=== PATIENT | male | born 1975 | race Caucasian/White ===

== ENCOUNTER 2016-11-26 04:51 | Emergency (ER) | payer SELFPAY ==
[~2016-11-26] VITALS: Ht 167.6 cm; Wt 75.5 kg
[2016-11-26 04:54] VITALS: Ht 167.6 cm; Wt 75.5 kg
[2016-11-26] MEDS ORDERED: IBUP-1542 PO (05:18)
[2016-11-26] MEDS ORDERED: AMO500 PO (05:18)
--- NOTE | 2016-11-26 05:23 | ERD ---
ER Documentation Chief Complaint Date/Time DATE: 11/26/16 TIME: 05:20 Chief Complaint sore throat x 3 days HPI 41-year-old male presents here in emergency department for complaint of sore throat, burning pain, 6/10 scale, is worse upon swallowing. Patient denies any fever or chills. Patient denies any cough or runny nose nasal congestion. Patient denies any other symptoms. Patient denies any sick contacts. Patient denies taking any medications to help with symptoms ROS All systems reviewed and are negative except as per history of present illness. Medications Home Meds Active Scripts Ibuprofen* (Motrin*) 600 Mg Tab, 600 MG PO Q6H Y for PAIN AND OR ELEVATED TEMP, #30 TAB Prov:DENEEN JUAN APPEALS ASSISTANT 11/26/16 Amoxicillin* (Amoxicillin*) 500 Mg Cap, 500 MG PO TID for 10 Days, CAP Prov:DENEEN JUAN APPEALS ASSISTANT 11/26/16 Allergies Allergies: Coded Allergies: No Known Allergy (Unverified , 11/26/16) PMhx/Soc Medical and Surgical Hx: pt denies Medical Hx, pt denies Surgical Hx History of Surgery: No Anesthesia Reaction: No Hx Neurological Disorder: No Hx Respiratory Disorders: No Hx Cardiac Disorders: No Hx Psychiatric Problems: No Hx Miscellaneous Medical Probl: No Hx Alcohol Use: No Hx Substance Use: No Hx Tobacco Use: No Smoking Status: Never smoker FmHx Family History: No coronary disease, No diabetes, No other Physical Exam Vitals Vital Signs Date Time Temp Pulse Resp B/P Pulse Ox O2 Delivery O2 Flow Rate FiO2 11/26/16 04:54 97.9 85 20 132/80 100 Physical Exam GENERAL: The patient is well developed and appropriate for usual state of health, in no apparent distress. HEENT: Atraumatic. Ears: Normal tympanic membrane, no erythema or bulging. No ear canal swelling. No ear discharge. Nose: normal nasal turbinates, no erythema or swelling. Normal nasal discharge. Throat: oropharynx erythematous with + tonsillar swelling and tonsillar exudates noted. No lymphadenopathy. CHEST: Clear to auscultation bilaterally. There are no rales, wheezes or rhonchi. HEART: Regular rate and rhythm. No murmurs, clicks, rubs or gallops. No S3 or S4. ABDOMEN: Soft, nontender and nondistended. Good bowel sounds. No rebound or guarding. No gross peritonitis. No gross organomegaly or masses. No Mustafa sign or McBurney point tenderness. BACK: No midline or flank tenderness. EXTREMITIES: Equal pulses bilaterally. There is no peripheral clubbing, cyanosis or edema. No focal swelling or erythema. Full range of motion. Grossly neurovascularly intact. NEURO: Alert and oriented. Cranial nerves 2-12 intact. Motor strength in all 4 extremities with 5/5 strength. Sensation grossly intact. Normal speech and gait. SKIN: There is no apparent rash or petechia. The skin is warm and dry. HEMATOLOGIC AND LYMPHATIC: There is no evidence of excessive bruising or lymphedema. No gross cervical, axillary, or inguinal lymphadenopathy. Procedures/MDM Medical decision making: Patient symptoms is likely consistent with acute bacterial pharyngitis, most likely strep throat. Low suspicion for peritonsillar abscess, mononucleosis, no symptoms of epiglottitis, laryngitis. No oral airway obstruction noted. No symptoms of sepsis at this time. Patient appears well and is hemodynamically stable. Patient was given for amoxicillin, ibuprofen, is advised to follow-up with primary care doctor in 2-3 days for reevaluation of symptoms. Patient is advised to do salt water gargles. Patient is advised to return to emergency department for worsening symptoms. Disposition: Home. Stable. Departure Diagnosis: Primary Impression: Acute bacterial pharyngitis Condition: Stable Patient Instructions: Pharyngitis, Strep (Presumed) DENEEN JUAN NP November 26, 2016 05:23
== END 2016-11-26 05:43 | disposition home or self-care (01) ==
LOC: FTE 04:51
DX: J02.9 Acute pharyngitis, unspecified (principal)
CPT/HCPCS: 99283

== ENCOUNTER 2016-12-12 03:45 | Emergency (ER) | payer SELFPAY ==
[~2016-12-12] VITALS: Ht 170.2 cm; Wt 78.5 kg
[~2016-12-12 03:45] MED LIST: AMO500 PO; IBUP-1542 PO
[2016-12-12 03:49] VITALS: Ht 170.2 cm; Wt 78.5 kg
--- NOTE | 2016-12-12 04:27 | ERA ---
ER Documentation Chief Complaint Date/Time DATE: 12/12/16 TIME: 04:26 Chief Complaint states hit right toe on something around 11 pm, now toe nail came off HPI This is a 41-year-old male who presents with a chief complaint of right third digit toenail coming off. Patient is worried about infection. Patient denies fever, discharge, bleeding, numbness, or loss of function. Patient denies IVDU , diabetes, asthma. Patient has no other complaints at this time. Patient is currently not working. ROS All systems reviewed and are negative except as per history of present illness. Medications Home Meds Active Scripts Acetaminophen* (Tylenol*) 325 Mg Tablet, 1 TAB PO Q6 Y for PAIN AND OR ELEVATED TEMP, #20 TAB Prov:JORDIN AWAN PA-C 12/12/16 Ibuprofen* (Motrin*) 600 Mg Tab, 600 MG PO Q6H Y for PAIN AND OR ELEVATED TEMP, #30 TAB Prov:DENEEN JUAN NP 11/26/16 Amoxicillin* (Amoxicillin*) 500 Mg Cap, 500 MG PO TID for 10 Days, CAP Prov:DENEEN JUAN QUARTER INSPECTOR 11/26/16 Allergies Allergies: Coded Allergies: No Known Allergy (Unverified , 12/12/16) PMhx/Soc Medical and Surgical Hx: pt denies Medical Hx, pt denies Surgical Hx History of Surgery: No Anesthesia Reaction: No Hx Neurological Disorder: No Hx Respiratory Disorders: No Hx Cardiac Disorders: No Hx Psychiatric Problems: No Hx Miscellaneous Medical Probl: No Hx Alcohol Use: No Hx Substance Use: No Hx Tobacco Use: No Smoking Status: Never smoker Physical Exam Vitals Vital Signs Date Time Temp Pulse Resp B/P Pulse Ox O2 Delivery O2 Flow Rate FiO2 12/12/16 03:49 97.9 83 20 138/89 100 Physical Exam Const: Well-appearing well-developed 41-year-old male Head: Atraumatic Eyes: Normal Conjunctiva ENT: Normal External Ears, Nose and Mouth. Neck: Full range of motion..~ No meningismus. Resp: Clear to auscultation bilaterally Cardio: Regular rate and rhythm, no murmurs. Capillary refill less than 2 seconds. Abd: Soft, non tender, non distended. Normal bowel sounds Skin: No petechiae or rashes Back: No midline or flank tenderness Ext: Left second digit toenail coming off. There is a new fresh toenail visualized underneath. Doing part of the toenail that is still attached is the lateral aspect. No openings or wounds visualized. No cyanosis, or edema Neur: Awake and alert. Neurovascularly intact bilaterally. Psych: Normal Mood and Affect Procedures/MDM 41-year-old male presenting with a chief complaint of toenail falling off. Patient is worried that it will get infected. Patient is an otherwise healthy male without diabetes and I have no suspicion for infection at this time. Patient's tetanus status is up-to-date and was last given 1 month ago. Physical examination revealed left second digit toenail falling off with a new toenail already having grown underneath. After giving the patient the option since nose artery coming off elected to not use lidocaine to numb the area. Patient had the toenail removed with alligator forceps and one motion. There is no toenail left skin folds. There is one clean toenail remaining. There were no complications and the patient remains neurovascularly intact after the procedure. Patient will be prescribed acetaminophen for discomfort. Discharge instructions will be given with return precautions. Departure Diagnosis: Primary Impression: Nail bed injury Additional Impression: Nail problem Condition: Stable Additional Instructions: Follow up with your PCP within the next 1-3 days for a more thorough evaluation and a possible referral to a specialist. Return the the emergency department immediately if symptoms worsen or change. If you have any questions regarding medications, ask your pharmacist or us before you leave. If any adverse reactions occur while taking your medications, discontinue the treatment and return to the emergency department immediately. Take your medications as directed, and complete the entire course of treatment. JORDIN AWAN PA-C Dec 12, 2016 04:27
[2016-12-12] MEDS ORDERED: ACET325T33 PO (04:34)
== END 2016-12-12 04:38 | disposition home or self-care (01) ==
LOC: FTE 03:45
DX: S91.205A Unspecified open wound of left lesser toe(s) with damage to nail, initial encounter (principal); W22.8XXA Striking against or struck by other objects, initial encounter; Y92.9 Unspecified place or not applicable